=== PATIENT | male | born 1955 | race African-American/Black ===

== ENCOUNTER 2016-03-16 08:33 | Emergency (ER) | payer OTHER ==
[~2016-03-16] VITALS: Ht 172.7 cm; Wt 129.7 kg
[~2016-03-16 08:33] MED LIST: ABILIFY20 MG PO; AMLODIPINE10 MG PO; ASPIR 8181 MG PO; ATORVASTATIN CA40 MG PO; BENTYL20 M1 PO; CIPRO500 M1 PO; CYCLOBENZAPRINE10 M1 PO; DIOVAN HCT 25 M1 TA1 PO; ETODOLAC400 MG PO; FENOFIBRIC ACI135 MG PO; FLAGYL500 MG PO; FLEXERIL10 MG PO; GABAPENTIN300 MG PO; HUMULIN 70/30 KW3 ML SC; METFORMIN1000 MG PO; METOPROLOL TART50 MG PO; MOBIC15 M1 PO; MOBIC15 MG PO; MULTIVITAMIN1 TAB PO; PERCOCET 325 MG1 TA2 PO; POTASSIUM CHLO10 MEQ PO; RANITIDINE150 MG PO; ZOLPIDEM TARTRA10 MG PO
[2016-03-16 08:40] VITALS: BP 137/95
--- NOTE | 2016-03-16 09:14 | ED GENERAL ADULT ---
History of Present Illness General Chief Complaint: Abdominal Pain/Flank Pain Stated Complaint: LT SIDED ABD PAIN Source: patient Exam Limitations: no limitations Vital Signs & Intake/Output Vital Signs & Intake/Output Vital Signs Date Time Temp Pulse Resp B/P Pulse O2 O2 Flow FiO2 Ox Delivery Rate 03/16 0924 97 03/16 0840 97.3 80 20 137/95 97 Room Air Allergies Coded Allergies: NO KNOWN ALLERGIES (06/12/13) Reconcile Medications Amlodipine Besylate (Amlodipine) 10 MG TABLET 1 TAB PO DAILY BP (Reported) Aripiprazole (Abilify) 20 MG TABLET 1 TAB PO DAILY MENTAL HEALTH (Reported) Aspirin (Ecotrin) 81 MG TABLET.DR 1 TAB PO DAILY HEART HEALTH (Reported) Atorvastatin Calcium (Lipitor) 40 MG TABLET 1 TAB PO DAILY CHOLESTEROL ( Reported) Etodolac 400 MG TABLET 1 TAB PO BID ARTHRITIS (Reported) FENOFIBRIC ACID (CHOLINE) (Fenofibric Acid) 135 MG CAPSULE.DR 1 CAP PO DAILY CHOLESTEROL (Reported) Gabapentin 300 MG CAPSULE 1 CAP PO TID NEUROPATHY (Reported) Hydrochlorothiazide/Valsarta (Diovan Hct 25 MG-320 MG) 1 TAB TAB 1 TAB PO DAILY BP (Reported) INSULIN NPH HUM/REG INSULIN HM (Humulin 70/30 Kwikpen 70 U/Ml-30 U/Ml 3 Ml) 100 UNIT/ML (70-30) INSULN.PEN 62 UNITS SC AD DIABETES (Reported) Linagliptin (Tradjenta) 5 MG TABLET 1 TAB PO DAILY HEP C (Reported) Meloxicam (Mobic) 15 MG TABLET 1 TAB PO DAILY PRN PAIN/INFLAMMATION METFORMIN HCL (Metformin) 1,000 MG TABLET 1 TAB PO BID DIABETES (Reported) Metoprolol Tartrate 50 MG TABLET 1 TAB PO BID BP (Reported) Multivitamin (Multiple Vitamins) 1 EACH TABLET 1 TAB PO DAILY SUPPLEMENT ( Reported) Potassium Chloride 10 MEQ CAPSULE.ER 1 CAP PO DAILY SUPPLEMENT (Reported) RANITIDINE HCL (Ranitidine HCl) 150 MG TABLET 1 TAB PO BID GI (Reported) Sofosbuvir/Velpatasvir (Epclusa 400 MG-100 MG Tablet) 400 MG-100 MG TABLET 1 TAB PO DAILY HEP C (Reported) Zolpidem Tartrate 10 MG TAB 2 TAB PO QPM SLEEP (Reported) Triage Note: PT C/O PAIN IN HIS LEFT SIDE X 3-4 WEEKS. 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 STATES IT FEELS LIKE GAS BUT EVERYTIME HE MOVES AT NIGHT HE FEELS THE PAIN. DENIES N/V/D Triage Nurses Notes Reviewed? yes Onset: Abrupt Duration: week(s): (3), intermittent Timing: recent history No Modifying Factors: none HPI: 60-year-old male comes into emergency room for further evaluation of left-sided back pain has been going on for the past 3 weeks. 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 Patient reports that the pain is worse with range of motion. Pain is worse when he presses on it. Patient is located in the left flank area. Denies any chest pain shortness of breath. Denies any abdominal pain. Denies any urinary symptoms. Denies any fever chills vomiting or changes in bowel movement. Denies any other associated symptoms currently. (ELENO MONTEZ) Past History Travel History Traveled to [place] past 21 day No Medical History Any Pertinent Medical History? see below for history Neurological: NONE EENT: NONE Cardiovascular: hypertension Respiratory: obstructive sleep apnea Gastrointestinal: NONE Hepatic: hepatitis C Renal: NONE Musculoskeletal: chronic back pain, osteoarthritis Psychiatric: NONE Endocrine: diabetes Blood Disorders: HEP C Surgical History Surgical History: non-contributory Psychosocial History What is your primary language Finnish Tobacco Use: Never used ETOH Use: denies use Illicit Drug Use: denies illicit drug use Family History Hx Contributory? No (ELENO MONTEZ) Review of Systems Review of Systems Constitutional: Reports: no symptoms. EENTM: Reports: no symptoms. Respiratory: Reports: no symptoms. Cardiovascular: Reports: no symptoms. GI: Reports: no symptoms. Genitourinary: Reports: no symptoms. Musculoskeletal: Reports: see HPI. Skin: Reports: no symptoms. Neurological/Psychological: Reports: no symptoms. Hematologic/Endocrine: Reports: no symptoms. Immunologic/Allergic: Reports: no symptoms. All Other Systems: Reviewed and Negative (ELENO MONTEZ) Physical Exam Physical Exam General Appearance: well developed/nourished, no apparent distress, alert, awake Head: atraumatic, normal appearance Eyes: Bilateral: normal appearance. Ears, Nose, Throat: normal pharynx, normal ENT inspection Neck: normal inspection Respiratory: normal breath sounds, no respiratory distress Cardiovascular: regular rate/rhythm Gastrointestinal: normal bowel sounds, soft, non-tender Back: decreased range of motion, tenderness over left flank Extremities: normal range of motion Neurologic/Psych: awake, alert, oriented x 3, normal gait, normal mood/affect Skin: intact, normal color Core Measures ACS in differential dx? No (considered it but no suspicion) CVA/TIA Diagnosis: No Severe Sepsis Present: No Septic Shock Present: No Diagram Body: 1) Tenderness with palpation (ELENO MONTEZ) Progress Differential Diagnoses I considered the following diagnoses in my evaluation of the patient: Muscle spasm, kidney stone, herniated disc, VA, PE, AAA, diverticulitis, latissimus dorsi muscle strain, rib fracture, pneumonia, Plan of Care: Orders Procedure Date/time Status URINALYSIS 03/16 840 Complete Laboratory Tests 03/16/16 0903: Urine Color YEL, Urine Clarity HAZY H, Urine pH 6.0, Ur Specific Arnett 1.025, Urine Protein TRACE H, Urine Ketones NEG, Urine Nitrite NEG, Urine Bilirubin NEG@ICTO, Urine Urobilinogen 0.2, Ur Leukocyte Esterase NEG, Ur Microscopic SEDIMENT EXAMINED, Urine RBC 1-3, Urine WBC RARE, Ur Epithelial Cells FEW, Granular Casts RARE H, Urine Mucus MANY H, Urine Hemoglobin NEG, Urine Glucose 100 H Initial ED EKG: none (ELENO MONTEZ) Departure Departure Disposition: HOME OR SELF CARE Condition: Stable Clinical Impression Primary Impression: Back pain Referrals: DOMINIQUE KISER APRN (PCP/Family) Additional Instructions: Take Flexeril and Vicodin as prescribed. Return to the emergency room immediately if he starts experiencing any chest pain shortness of breath abdominal pain fever chills vomiting or any other concerns worsening symptoms. Follow-up with your primary care doctor for reevaluation tomorrow. Please go over all results of today's visit with your primary care doctor. Contact your primary care doctor to let them know you were here in the emergency room. There may be nonspecific findings which may not be related to your visit today here in the emergency room but may require further evaluation and chronic monitoring by your primary care doctor. If you had a laceration today the chance of foreign body always remains. You should follow-up with your primary care doctor for recheck in 3-5 days for a wound check. If you had an x-ray done there is a chance that a fracture could have been missed on initial read and you should follow-up with your primary care doctor for repeat x-rays if symptoms persist. If your blood pressure was elevated here in the emergency room please have rechecked by her primary care doctor within the next 48 hours by your primary care doctor. If you were prescribed a narcotic here in the emergency room or any type of controlled substances you're not allowed to drive while taking this medication or operate any type of heavy machinery. Narcotics can make you feel lightheaded dizziness nausea and can cause constipation. 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 Thank you for choosing [facility] emergency room. Please return to the emergency room immediately if you have any other concerns worsening of symptoms. Departure Forms: Customer Survey General Discharge Information Comments 03/16/2016 9:56:50 AM Patient clinically looks well. Patient is nontoxic-appearing. Patient is in no apparent distress. Symptoms are most consistent with muscle pain. Patient has pain that is reproducible on exam and worse with range of motion. Patient has no pain in abdomen. No complaints of chest pain shortness of breath. Symptoms have been going on for 3 weeks. At this time I do not feel any further evaluation with blood work, EKG, or CAT scan is necessary. Patient was offered further evaluation with further testing but he agrees with my assessment and declined any further evaluation with other tests. Patient will be treated symptomatically at this time. Follow-up with primary care doctor. Patient is to return immediately if any other concerns worsening symptoms. Patient understands and agrees with plan of care. Patient will have follow-up with primary care doctor. (ELENO MONTEZ) PA/REPRESENTATIVE Co-Sign Statement Statement: ED Attending supervision documentation- [] I saw and evaluated the patient. I have also reviewed all the pertinent lab results and diagnostic results. I agree with the findings and the plan of care as documented in the PA's/REPRESENTATIVE's documentation. [X] I have reviewed the ED Record and agree with the PA's/REPRESENTATIVE's documentation. [] Additions or exceptions (if any) to the PAs/REPRESENTATIVE's note and plan are summarized below: [] (MITCH BRAMBILA,JAIR) Critical Care Note Critical Care Note Critical Care Time: non-applicable (ELENO MONTEZ)
[2016-03-16] MEDS ORDERED: CYCLOBENZAPRINE10 M1 PO (09:16)
[2016-03-16] MEDS ORDERED: HYDROCODON-ACE1 EAC2 PO (09:16)
[2016-03-16] MEDS ORDERED: TRADJENTA5 M1 PO (09:28)
[2016-03-16] MEDS ORDERED: EPCLUSA 400 MG1 EACH PO (09:29)
== END 2016-03-16 09:34 ==
LOC: ERH 08:33
DX: R10.32 Left lower quadrant pain (principal)
CPT/HCPCS: 81001